=== PATIENT | female | born 1950 | race Hispanic/Latino ===

== ENCOUNTER 2019-02-06 10:22 | Emergency (ER) | payer MEDICARE, OTHER ==
[2019-02-06 10:29] VITALS: BMI 25.0
--- NOTE | 2019-02-06 10:55 | ED PDOC ---
Upper Extremity Pain/Injury Time Seen by Provider: 02/06/19 10:40 Chief Complaint (Nursing): Chest Pain Chief Complaint (Provider): Right arm pain History Per: Patient History/Exam Limitations: no limitations Onset/Duration Of Symptoms: Days (3), Intermittent Episodes Additional History Per: Patient Additional Complaint(s): 68yo female, with history of hypertension, comes to ER reporting right arm pain with associated chest discomfort, intermittently present for the past 3 days. She also reports feeling anxious and attributes this to her son being involved in an MVA recently. Otherwise, no shortness of breath, weakness, numbness, or other medical complaints. PMD: Dr. Anderson Past Medical History Reviewed: Historical Data, Nursing Documentation, Vital Signs Vital Signs: Last Vital Signs Temp 98.6 F 02/06/19 10:29 Pulse 100 H 02/06/19 10:29 Resp 18 02/06/19 10:29 BP 137/97 H 02/06/19 10:29 Pulse Ox 99 02/06/19 10:29 - Medical History PMH: HTN - Surgical History Surgical History: No Surg Hx - Family History Family History: States: No Known Family Hx - Allergies Allergies/Adverse Reactions: Allergies Allergy/AdvReac Type Severity Reaction Status Date / Time Unobtainable Allergy Verified 02/06/19 10:49 Review of Systems ROS Statement: Except As Marked, All Systems Reviewed And Found Negative Cardiovascular: Positive for: Other (chest discomfort intermittently) Musculoskeletal: Positive for: Arm Pain (right) Neurological: Negative for: Weakness, Numbness Physical Exam - Reviewed Nursing Documentation Reviewed: Yes Vital Signs Reviewed: Yes - Physical Exam Appears: Positive for: Non-toxic Head Exam: Positive for: ATRAUMATIC, NORMAL INSPECTION, NORMOCEPHALIC Skin: Positive for: Normal Color, Warm, DRY Eye Exam: Positive for: EOMI, Normal appearance, PERRL Neck: Positive for: Normal, Painless ROM Cardiovascular/Chest: Positive for: Regular Rate, Rhythm. Negative for: Murmur Respiratory: Positive for: Normal Breath Sounds. Negative for: Respiratory Distress Gastrointestinal/Abdominal: Positive for: Soft Back: Positive for: Normal Inspection Extremity: Positive for: Normal ROM (FROM right arm). Negative for: Deformity Neurological/Psych: Positive for: Awake, Alert, Normal Tone, Oriented (x 3). Negative for: Motor/Sensory Deficits - ECG O2 Sat by Pulse Oximetry: 99 (RA) Pulse Ox Interpretation: Normal Medical Decision Making Medical Decision Makinyo with right arm pain, intermittent chest discomfort x 3 days Plan: -- Troponin I -- CXR Scribe Attestation: Documented by Hannah Jaquez, acting as a scribe for Villa Castillo MD Discussed with Dr. Aguila. Will see in office /3 Provider Scribe Attestation: All medical record entries made by the Scribe were at my direction and personally dictated by me. I have reviewed the chart and agree that the record accurately reflects my personal performance of the history, physical exam, medical decision making, and the department course for this patient. I have also personally directed, reviewed, and agree with the discharge instructions and disposition. Disposition - Clinical Impression Clinical Impression: Chest pain, Hypertension - Patient ED Disposition Is Patient to be Admitted: No Counseled Patient/Family Regarding: Studies Performed, Diagnosis, Need For Followup - Disposition Referrals: Som Aguila MD [Staff Provider] - Disposition: Routine/Home Disposition Time: 11:59 Condition: FAIR Instructions: High Blood Pressure in Adults, Chest Pain Forms: [employer] (Al[place]ian)
--- NOTE | 2019-02-06 11:17 | RAD ---
Date of service: 02/06/2019 HISTORY: Chest pain COMPARISON: No prior. TECHNIQUE: Chest PA and lateral views FINDINGS: LUNGS: No active pulmonary disease. PLEURA: No significant pleural effusion identified. No pneumothorax apparent. CARDIOVASCULAR: No aortic atherosclerotic calcification present. Normal cardiac size. No pulmonary vascular congestion. OSSEOUS STRUCTURES: Thoracic dextroscoliosis. VISUALIZED UPPER ABDOMEN: Normal. OTHER FINDINGS: None. IMPRESSION: No active disease.
[2019-02-06 12:09] VITALS: BP 130/77; PULSE 79; RESP 16; TEMP 98.2; O2SAT 100
--- NOTE | 2019-02-09 14:03 | CARD ---
APPROVED REPORT Date of service: 02/06/2019 EKG Measurement Heart [id number] <Conclusion> Sinus tachycardia Left atrial enlargement Nonspecific ST abnormality Abnormal ECG
== END 2019-02-06 12:09 | disposition home or self-care (01) ==
LOC: H.ER 10:22
DX: R07.89 Other chest pain (principal); I10 Essential (primary) hypertension; I11.9 Hypertensive heart disease without heart failure; I51.7 Cardiomegaly